=== PATIENT | male | born 1990 | race African-American/Black ===

== ENCOUNTER 2016-07-03 02:46 | Emergency (ER) | payer SELFPAY | END 2016-07-03 03:29 | disposition home or self-care (01) | LOC: D.ER 02:46 | DX: S63.502A Unspecified sprain of left wrist, initial encounter (principal); X58.XXXA Exposure to other specified factors, initial encounter; Y93.67 Activity, basketball; Y92.310 Basketball court as the place of occurrence of the external cause ==